=== PATIENT | female | born 1980 | race Caucasian/White ===

== ENCOUNTER 2017-10-18 10:26 | Emergency (ER) | payer MEDICAID ==
[~2017-10-18] VITALS: Ht 152.4 cm; Wt 81.4 kg
[2017-10-18 10:33] VITALS: Ht 152.4 cm; Wt 81.4 kg
[2017-10-18 11:38] LABS: BASOPHIL % 0.2 % (0-2); PLATELET COUNT 256 x10^3mcL (130-400); RED CELL DISTRIBUTION WIDTH 13.3 % (11.5-14.5)
[2017-10-18 11:48] LABS: CALCIUM 8.8 mg/dL (8.5-10.1); CARBON DIOXIDE 25.6 mmol/L (21-32); CHLORIDE SERUM 104 mmol/L (98-107); CREATININE SERUM 0.6 mg/dL (0.6-1.0); GFR1 > 60 mL/min; GLUCOSE SERUM 104 mg/dL (74-106); POTASSIUM SERUM 3.9 mmol/L (3.5-5.1); SODIUM SERUM 135 mmol/L (136-145)
[2017-10-18 11:54] LABS: ALBUMIN 3.7 g/dL (3.4-5.0); ALKALINE PHOSPHATASE 66 U/L (46-116); ALT/SGPT 21 U/L (14-59); AST/SGOT 18 U/L (15-37); BILIRUBIN TOTAL 0.28 mg/dL (0.20-1.00); CHOLESTEROL 200 mg/dL (<200); HDL CHOLESTEROL 59 mg/dL (40-60); TOTAL PROTEIN, SERUM 8.1 g/dL (6.4-8.2)
[2017-10-18 13:57] VITALS: BP 124/69
== END 2017-10-18 13:57 | disposition home or self-care (01) ==
LOC: ED 10:26
PROVIDERS: Emergency Medicine
DX: R55 Syncope and collapse (principal); G44.209 Tension-type headache, unspecified, not intractable
CPT/HCPCS: J0780; J1885; J7030; Q0092

== ENCOUNTER 2018-08-22 16:42 | Emergency (ER) | payer MEDICAID ==
[~2018-08-22] VITALS: Ht 152.4 cm; Wt 86.2 kg
[2018-08-22 16:47] VITALS: Ht 152.4 cm; Wt 86.2 kg
[2018-08-22 20:08] VITALS: BP 119/75
== END 2018-08-22 20:08 | disposition home or self-care (01) ==
LOC: ED 16:42
DX: T16.2XXA Foreign body in left ear, initial encounter (principal); E66.9 Obesity, unspecified; Z68.37 Body mass index [BMI] 37.0-37.9, adult; Z98.890 Other specified postprocedural states; X58.XXXA Exposure to other specified factors, initial encounter; Y93.89 Activity, other specified; Y92.89 Other specified places as the place of occurrence of the external cause; Y99.8 Other external cause status

== ENCOUNTER 2019-04-17 00:14 | Emergency (ER) | payer MEDICAID ==
[~2019-04-17] VITALS: Ht 157.5 cm; Wt 90.3 kg
[2019-04-17 00:51] VITALS: Ht 157.5 cm; Wt 90.3 kg
[2019-04-17 02:59] LABS: UA SPECIFIC GRAVITY 1.025 (1.005-1.035); microscopic required? YES; urine erythrocyte 3+ (NEGATIVE)
[2019-04-17 03:45] VITALS: BP 108/62
== END 2019-04-17 03:45 | disposition home or self-care (01) ==
LOC: ED 00:14
PROVIDERS: Emergency Medicine
DX: N39.0 Urinary tract infection, site not specified (principal)
CPT/HCPCS: 87804